=== PATIENT | male | born 1940 | race Caucasian/White ===

== ENCOUNTER 2017-01-01 00:05 | Day surgery (SDC) | payer MEDICARE, OTHER ==
[~2017-01-01] VITALS: Ht 193 cm; Wt 105.2 kg
[2017-01-01] VITALS (7 sets, daily range): BP systolic 111–143; BP diastolic 70–87; PULSE 58–78; RESP 12–18; O2SAT 94–99
[~2017-01-01 00:05] MED LIST: APIX5TAB PO; ASPI-973 PO; ATEN25TA PO; ATOR20TA65 PO; CHOL200047 PO; NC8176 PO; NITR0.4T6 SL
[2017-01-01] MEDS ORDERED: Propofol 10,000 mCg/mL 20 mL Inj ONE (00:06)
[2017-01-01] MEDS ORDERED: Lactated Ringer's 1,000 ML IV SCH ×2 (05:00→08:52)
[2017-01-01] MEDS ORDERED: Atropine 1 mg/10 mL (Code) Syringe ONE (07:48)
[2017-01-01 08:31] LABS: BASOPHILS % (AUTO) 0.3 % (0-3); EOSINOPHILS % (AUTO) 4.9 % (0-5); MONOCYTES % (AUTO) 10.2 % (4-12); Mean Corpuscular Hemoglobin 30.8 pg (27.0-35.0); Mean Corpuscular Volume 87.4 fL (81-100); NEUTROPHILS % (AUTO) 69.3 % (40-74); Platelet Count 160 bil/L (150-400)
--- NOTE | 2017-01-01 08:51 | PCM.HPANE ---
Patient Data Surgeon Admitting Provider: Attending Provider:Jasmina Miller MD Primary Care Physician:Antony Anthony MD Other Provider:Daniel Coats Anesthesia Reason for Visit Atrial Fibrillation Controlled Ht/WT & BMI Height (Feet): 6 Height (Inches): 4.00 Weight (Kilograms): 105.200 Body Mass Index 28.24 Allergies Coded Allergies: sulfamethoxazole (Unverified Allergy, Unknown, malaise, 09/02/15) Pt. feeling severe allergy to Bactrim started about 08/27/15 trimethoprim (Unverified Allergy, Unknown, malaise, 09/02/15) Pt. feeling severe allergy to Bactrim started about 08/27/15 Past Anesthesia History Anesthesia History: Denies:: Anesthesia Reactions Diabetes History Hx Diabetes?: No MRSA MRSA: No Medications Hypertension Medication: No Home Meds Incl Beta Hollie: No Reported Medications Nitroglycerin SL 0.4 Mg Tab.subl0.4 Mg SL 12/31/16 Apixaban (Eliquis)5 Mg Tablet5 Mg PO BID 12/31/16 Atenolol 25 Mg Tfxvyz47.5 Mg PO DAILY 09/02/15 Cholecalciferol (Vitamin D3) (Vitamin D3)2,000 Unit Capsule1,000 Unit PO BID 09/02/15 Atorvastatin Calcium 20 Mg Oobscf03 Mg PO DAILY 09/02/15 Aspirin 81 Mg Yeoeqv54 Mg PO DAILY 09/02/15 Benazepril 10 Mg Xoklzn85 Mg PO DAILY 09/02/15 Discontinued Reported Medications Acetaminophen 325 Mg [id number] Mg PO Q4H PRN For Pain 09/02/15 Diphenhydramine Hcl (Benadryl)50 Mg Bcgbeqy04 Mg PO Q6H 09/02/15 Saccharomyces Boulardii (Florastor)250 Mg [id number] Mg PO DAILY 09/02/15 History History of ENT Problems?: Yes HEENT History: Positive for:: Cataracts (About a year ago, removed) Denies:: Dysphagia Sinus Problem Denture Type: None Teeth Condition: Within Normal Limits Hx of Heart Problems?: Yes Cardiovascular History: Positive for:: Cardiac Surgery (Stent LAD placed 2011) Chest Pain Hypertension (on meds) Irregular Heartbeat (atrial fibrillation recent onset) Denies:: Congestive Heart Failure Edema Heart Murmur Pacemaker Thrombophlebitis Hx of Respiratory Problem?: No Respiratory History: Denies:: Tuberculosis Hx Neurologic Problems?: No Neurological History: Positive for:: Dizziness Denies:: Alzheimer's Disease CVA Dementia Headaches Parkinson's Disease Seizures Hx of GI Problems?: Yes Gastrointestinal History: Positive for:: Diverticulitis (Colonoscopy Q2-3 years) Denies:: Gastroesphageal Reflux Gastrointestinal Bleeding Heartburn Hepatitis Hiatal Hernia Rectal Bleeding Hx of Problems?: Yes Genitourinary History: Denies:: HX of Hemodialysis Kidney Stones Urinary Tract Infection HX of Peritoneal Dialysis: No Male Hx: Positive for:: Prostate Problems (Prostate CA) Denies:: Scrotal Mass Testicular Surgery Hx Musculoskeletal Problems?: Yes Musculoskeletal History: Positive for:: Joint Replacement (bilat. knees) Musculoskeletal Trauma (Skiing days, dislocated knees) Hx of Psycho/Social Problems?: No Psycho Social History: Denies:: Anxiety Bipolar Disorder Hx Depression Suicide Attempt Hx Surgeries?: Yes (URETHROTOMY ON Thursday08/27/15) Hx Any Other Health Problems?: Yes Other History: Positive for:: Cancer (Prostate and skin CA.) Hospitalization (Gallbladder removed in 2014 knee repl.) Denies:: Thyroid Disease History Blood Transfusions: Positive for:: Accept Blood Products? Blood Transfusions (First knee 06/2012) Denies:: Blood Transfuse Reaction Hx Diabetes: No Hx Alcohol Use: Yes (Socially)Hx Substance Use: No Smoking Status: Never Smoker Have You Smoked inLast 12 mo: No Stop/Bang Treated for Sleep Apnea?: No Do You Have a CPAP Machine?: No LENY Risk Assessment: Low Risk, <3 Yes Risk Assessment Category Category 1A: Patient has history of documented sleep apnea, and HAS NOT received any narcotic, sedative or anesthesia administration during this stay. Category 1B: Patient has history of documented sleep apnea, and HAS received any narcotic , sedative or anesthesia administration during this stay Category 2: Patient has SUSPECTED Obstructive Sleep Apnea, and HAS received any narcotic , sedative or anesthesia administration during this stay. Category 3: Patient has SUSPECTED Obstructive Sleep Apnea and HAS NOT received narcotic, sedative or anesthesia administration during this stay. Category 4: Outpatient in Procedural Areas with known sleep apnea or who screen positive for High Risk via the STOP/BANG questionnaire. Exam Exam Vital Signs Vital Signs Date Time Temp Pulse Resp B/P Pulse Ox O2 Delivery O2 Flow Rate FiO2 01/01/17 08:27 36.6 78 18 143/87 98 Room Air General Appearance: Oriented X3 HEENT/AIRWAY: MP 2 Lungs: Normal Air Movement Heart: Other Meds/Labs/Diagnostics Labs Test 01/01/17 08:20 White Blood Count 6.4th/mm3 (3.8-10.1) Red Blood Count 5.30mil/mm3 (4.40-5.80) Hemoglobin 16.3g/dL (13.8-17.2) Hematocrit 46.3% (41.0-50.0) Mean Corpuscular Volume 87.4fL (81-100) Mean Corpuscular Hemoglobin 30.8pg (27.0-35.0) Mean Corpuscular Hemoglobin Concent 35.2% (32.0-37.0) Red Cell Distribution Width 13.5% (12.3-15.4) Platelet Count 160bil/L (150-400) Neutrophils (%) (Auto) 69.3% (40-74) Lymphocytes (%) (Auto) 15.0% (14-46) Monocytes (%) (Auto) 10.2% (4-12) Eosinophils (%) (Auto) 4.9% (0-5) Basophils (%) (Auto) 0.3% (0-3) Plan Impression Patient chart reviewed, patient interviewed and anesthestic plan with risks, benefits, and alternatives discussed, and informed consent obtained. ASA Physical Status: ASA2 Mod Systemic Disease Anesthetic Plan: MAC Bene/Risks/Altern/Consents: Yes HP Complete Prior to Induction: Yes Jesús Campos MD Jan 01, 2017 08:51
[2017-01-01] MEDS ORDERED: Lactated Ringer's 500 ML IV PRN (08:52)
[2017-01-01] MEDS ORDERED: Phenylephrine 10,000 mCg/mL Inj IVPUSH PRN (08:55)
[2017-01-01] MEDS ORDERED: Dexamethasone 4 mg/mL Inj IVPUSH PRN (08:55)
[2017-01-01] MEDS ORDERED: EPHEDrine Sulfate 50 mg/mL Inj IVPUSH PRN (08:55)
[2017-01-01] MEDS ORDERED: fentaNYL-PF 50 mCg/mL 2 mL Inj IVPUSH PRN (08:55)
[2017-01-01] MEDS ORDERED: HYDROmorphone 1 mg/mL Inj IVPUSH PRN (08:55)
[2017-01-01] MEDS ORDERED: Ondansetron 2 mg/mL 2 mL Inj IVPUSH PRN (08:55)
[2017-01-01] MEDS ORDERED: MetoCLOpramide 5 mg/mL 2 mL Inj IVPUSH PRN (08:55)
[2017-01-01] MEDS ORDERED: Labetalol 5 mg/mL 4 mL Inj IV PRN (08:55)
--- NOTE | 2017-01-01 09:18 | PCM.ANEP1 ---
Post Anesthesia Phase 1 PACU Phase 1 Assessment Vital Signs Vital Signs Date Time Temp Pulse Resp B/P Pulse Ox O2 Delivery O2 Flow Rate FiO2 01/01/17 09:15 61 12 123/73 94 Nasal Cannula 3.00 01/01/17 09:12 61 14 125/77 94 Nasal Cannula 3.00 01/01/17 09:09 59 14 111/80 94 Nasal Cannula 3.00 01/01/17 08:27 36.6 78 18 143/87 98 Room Air Anesthetic Administered: GA Level of Alertness: Awake, talking Pain: No Nausea or Vomiting: No Cardiovascular Function and Hy: Yes Lungs: Normal Air Movement Jesús Campos MD Jan 01, 2017 09:18
--- NOTE | 2017-01-01 23:02 | PROCED ---
[address] [address] PROCEDURE NOTE PATIENT: POOJA YADAV : 1940 MR#: [id number] ADMIT: 01/01/2017 JOB ID: [id number] DATE OF SERVICE: 01/01/2017 POSTOPERATIVE DIAGNOSIS(ES): PREOPERATIVE DIAGNOSIS(ES): SURGEON: Jasmina Miller MD PROCEDURES PERFORMED: DC cardioversion. INDICATIONS: A 76-year-old man with development of atrial fibrillation postoperative about two months ago as he is symptomatic with this and desires cardioversion. DESCRIPTION OF PROCEDURE: Informed consent was obtained. Patient brought to the [facility]. Pads were placed in the AP position. Anesthesia was provided by the anesthesia service. After the patient was suitably anesthetized, a 200 joule biphasic synchronized shock was delivered to convert the patient to sinus rhythm. There were no complications. IMPRESSION: Successful cardioversion to sinus rhythm. JHONNY
== END 2017-01-01 23:59 | disposition home or self-care (01) ==
LOC: SOUO 00:05
PROVIDERS: ATTEND Internal Medicine
DX: I48.91 Unspecified atrial fibrillation (principal); I25.10 Atherosclerotic heart disease of native coronary artery without angina pectoris; I25.2 Old myocardial infarction; E78.5 Hyperlipidemia, unspecified; Z79.01 Long term (current) use of anticoagulants; I10 Essential (primary) hypertension; Z79.82 Long term (current) use of aspirin